=== PATIENT | female | born 1995 | race Two or more races ===

== ENCOUNTER → 2024-02-08 | Emergency (ER) | payer OTHER ==
[~2024-02-08] VITALS: Ht 157.5 cm; Wt 45.4 kg
[2024-02-08 21:03] VITALS: BP 100/66; O2SAT 100
== END | disposition left against medical advice (07) ==
LOC: ER 20:29
DX: Z53.21 Procedure and treatment not carried out due to patient leaving prior to being seen by health care provider (principal)